=== PATIENT | female | born 1935 | race Caucasian/White ===

== ENCOUNTER 2017-02-03 08:34 | Emergency (ER) | payer MEDICARE, OTHER ==
[2017-02-03 09:45] LABS: HEMOGLOBIN 10.5 gm/dl (12.3-15.3); RED BLOOD COUNT 3.95 M/UL (4.00-5.10); WHITE BLOOD COUNT 6.7 K/UL (4.5-11.0)
[2017-02-03 11:15] LABS: BUN/CREATININE RATIO 14 (0-10)
== END 2017-02-03 12:54 | disposition home or self-care (01) ==
LOC: ER1 08:34
PROVIDERS: Emergency Medicine
DX: N39.0 Urinary tract infection, site not specified (principal); R41.82 Altered mental status, unspecified; I44.7 Left bundle-branch block, unspecified; D64.9 Anemia, unspecified; G30.9 Alzheimer's disease, unspecified; F02.80 Dementia in other diseases classified elsewhere, unspecified severity, without behavioral disturbance, psychotic disturbance, mood disturbance, and anxiety; E11.9 Type 2 diabetes mellitus without complications; I10 Essential (primary) hypertension; E78.5 Hyperlipidemia, unspecified; Z88.2 Allergy status to sulfonamides; Z79.84 Long term (current) use of oral hypoglycemic drugs; Z79.899 Other long term (current) drug therapy
CPT/HCPCS: 36415; 70450; 71010; 80053; 81001; 84484; 85025; 87040; 87077; 87086; 87186; 93005; 96365; 99284; J0696; J7050

== ENCOUNTER → 2017-02-21 | Outpatient (CLI) | payer MEDICARE, OTHER ==
[2017-02-21 10:20] LABS: BUN/CREATININE RATIO 15 (0-10)
== END ==
LOC: LAB 09:28
PROVIDERS: Emergency Medicine
DX: E11.69 Type 2 diabetes mellitus with other specified complication (principal); I10 Essential (primary) hypertension; E78.2 Mixed hyperlipidemia; R23.8 Other skin changes
CPT/HCPCS: 36415; 80053; 80061; 83036; 83704

== ENCOUNTER 2017-04-18 11:30 | Emergency (ER) | payer MEDICARE, OTHER ==
[2017-04-18 12:38] LABS: HEMOGLOBIN 11.2 gm/dl (12.3-15.3); RED BLOOD COUNT 4.17 M/UL (4.00-5.10); WHITE BLOOD COUNT 7.7 K/UL (4.5-11.0)
[2017-04-18 13:05] LABS: BUN/CREATININE RATIO 16 (0-10)
== END 2017-04-18 17:30 | disposition home or self-care (01) ==
LOC: ER1 11:30 → ZEROF 14:40 → ER1 17:30
PROVIDERS: Emergency Medicine
DX: R07.89 Other chest pain (principal); E11.9 Type 2 diabetes mellitus without complications; F03.90 Unspecified dementia, unspecified severity, without behavioral disturbance, psychotic disturbance, mood disturbance, and anxiety; D64.9 Anemia, unspecified; Z88.2 Allergy status to sulfonamides
CPT/HCPCS: 36415; 71010; 80053; 82550; 82553; 83874; 84484; 85025; 93005; 99285

== ENCOUNTER 2021-09-08 12:13 | Inpatient (IN) | payer MEDICARE, OTHER ==
[~2021-09-08] VITALS: Ht 167.6 cm; Wt 74.5 kg
[~2021-09-08 12:13] MED LIST: ARICEPT10 MG PO; ASPIRIN EC81 MG PO; COREG6.25 MG PO; CYMBALTA30 MG PO; DULCOLAX10 MG PR; FERROUS SULFAT325 MG PO; GLUCOPHAGE 500500 MG PO; K-DUR TAB 10 M10 MEQ PO; LEVEMIR FL100 UNIT/1 SQ; NAMZARIC 28 MG1 EACH PO; NOVOLOG FL100 UNIT/1 INJ; PREVACID 30 MG30 MG PO; SENNA8.6 MG PO; TRADJENTA5 MG PO; TYLENOL 8 HOUR650 MG PO; UTI-STAT L3875 MG/30 PO; VALSARTAN80 MG PO; VITAMIN D350 MCG PO
[2021-09-08 14:00] LABS: HEMOGLOBIN 14.1 gm/dl (12.3-15.3); RED BLOOD COUNT 4.52 M/UL (4.00-5.10); WHITE BLOOD COUNT 19.4 K/UL (4.5-11.0)
[2021-09-08 14:37] LABS: BUN/CREATININE RATIO 45 (0-10)
[2021-09-08] MEDS ORDERED: VITAMIN C 500500 MG PO (18:40)
[2021-09-08] MEDS ORDERED: OMEPRAZOLE20 MG PO (18:41)
[2021-09-08] MEDS ORDERED: NAMENDA10 MG PO (18:41)
--- NOTE | 2021-09-08 20:31 | NUR ---
09/08/212029 TALKED WITH CINDY AT [facility], PT HAS BEEN FULLY VAC AND HAS HAD FLU SHOT, MUST BE FED AND HAS HAD A LARGE BM YESTERDAY
[2021-09-09 00:32] LABS: KPC-CARBAPENEM-RESISTANCE GENE Not Detected (Negative); mecA (METHICILLIN RESIST GENE Not Detected (Negative); vanA/B (VANCOMYCIN RESIST GENE Not Detected (Negative)
[2021-09-09 00:33] LABS: ACINETOBACTER BAUMANNII Not Detected (Negative); CANDIDA ALBICANS Not Detected (Negative); CANDIDA KRUSEI Not Detected (Negative); CANDIDA TROPICALIS Not Detected (Negative); ESCHERICHIA COLI Not Detected (Negative); HAEMOPHILUS INFLUENZAE Not Detected (Negative); KLEBSIELLA OXYTOCA Not Detected (Negative); PSEUDOMONAS AERUGINOSA Not Detected (Negative); SERRATIA MARCESANS Not Detected (Negative); STAPHYLOCOCCUS Not Detected (Negative); STAPHYLOCOCCUS AUREUS Not Detected (Negative); STREP AGALACTIAE (GROUP B) Not Detected (Negative); STREP PYOGENES (GROUP A) Not Detected (Negative); STREPTOCOCCUS Not Detected (Negative)
[2021-09-09 01:39] LABS: ENTEROCOCCUS Not Detected (Negative)
[2021-09-09 01:40] LABS: PROTEUS DETECTED (Negative)
[2021-09-09 01:44] LABS: KLEBSIELLA PNEUMONIAE DETECTED (Negative)
[2021-09-09 02:25] LABS: HEMOGLOBIN 12.9 gm/dl (12.3-15.3); RED BLOOD COUNT 4.07 M/UL (4.00-5.10)
[2021-09-09 03:24] LABS: WHITE BLOOD COUNT 42.5 K/UL (4.5-11.0)
--- NOTE | 2021-09-09 23:07 | NUR ---
2220 CALLED REPORT TO ANTONIA AT [facility], 2228 CALLED KIET SINGH X 2 NO ANSWER, SPOKE WITH GRAND DAUGHTER SHABNAM STALLINGS AND RECIEVED VERBAL CONSENT FOR TRANSFER. PT IS GOING TO [facility] 3B, ROOM # [id number] CALLED EMS AND GAVE INFORMATION.
== END 2021-09-09 23:51 | DRG 872 ==
LOC: ER1 12:13 → CDU 16:44 → MED SURG 4 19:45
PROVIDERS: Emergency Medicine; Physician Assistant Medical; ADMIT Internal Medicine
DX: A41.9 Sepsis, unspecified organism (principal); N30.00 Acute cystitis without hematuria; I50.32 Chronic diastolic (congestive) heart failure; N17.9 Acute kidney failure, unspecified; E87.0 Hyperosmolality and hypernatremia; N13.6 Pyonephrosis; Z20.822 Contact with and (suspected) exposure to COVID-19; F03.90 Unspecified dementia, unspecified severity, without behavioral disturbance, psychotic disturbance, mood disturbance, and anxiety; K59.00 Constipation, unspecified; E11.9 Type 2 diabetes mellitus without complications; R65.20 Severe sepsis without septic shock; I11.0 Hypertensive heart disease with heart failure; G30.9 Alzheimer's disease, unspecified; F02.80 Dementia in other diseases classified elsewhere, unspecified severity, without behavioral disturbance, psychotic disturbance, mood disturbance, and anxiety; K21.9 Gastro-esophageal reflux disease without esophagitis; Z66 Do not resuscitate; D64.9 Anemia, unspecified; Z98.890 Other specified postprocedural states; Z88.2 Allergy status to sulfonamides; Z79.899 Other long term (current) drug therapy
CPT/HCPCS: 36415; 51702; 71045; 74018; 80048; 80053; 81001; 82550; 82553; 82962; 83605; 83735; 83874; 84484; 85025; 85027; 87040; 87077; 87150; 87186; 93005; 96374; 96375; 96376; 99285; G0378; J0696; J1335; J1650; J2185; U0002